=== PATIENT | female | born 1930 | race African-American/Black ===

== ENCOUNTER 2018-05-10 08:23 | Inpatient (IN) | payer MEDICARE, BC ==
[~2018-05-10] VITALS: Ht 152.4 cm; Wt 70.8 kg
[2018-05-10] VITALS (18 sets, daily range): BP systolic 140–195; BP diastolic 54–88
[~2018-05-10 08:23] MED LIST: ACET-3161 GT; ASPI-1159 PO; ATEN1TAB42 PO; CALC-775 PO; CLOP75TA16 PO; DIGO125T82 PO; DIPH25CA83 PO; DONE5TAB33 PO; FAMO20TA8 PO; FLUO15CR7 TP; HYDR-4134 PO; LIP40 PO; MELO-106 PO; POTA20TA12 PO; TRIA1CAP6 PO
[2018-05-10] MEDS ORDERED: IODIXANOL 320MG/ML 100 ML BOTTLE IV ONE (09:29)
[2018-05-10] MEDS ORDERED: LIDOCAINE HCL/PF 1% 10 MG/ML 5ML VIAL ONE (09:29)
[2018-05-10] MEDS ORDERED: MIDAZOLAM HCL 2 MG/2 ML VIAL ONE (10:24)
[2018-05-10] MEDS ORDERED: CLOP75TA16 PO (10:25)
[2018-05-10] MEDS ORDERED: HYDR100T26 PO (10:25)
[2018-05-10] MEDS ORDERED: FENTANYL CITRATE/PF 50MCG/ML 2ML VIAL ONE (10:25)
[2018-05-10] MEDS ORDERED: DONE10TA11 PO (10:25)
[2018-05-10] MEDS ORDERED: IOHEXOL-300 100 ML BOTTLE ONE (11:08)
[2018-05-10] MEDS ORDERED: CLOPIDOGREL 75MG TABLET ONE (12:03)
[2018-05-10] MEDS ORDERED: ATROPINE SULFATE 1MG/10ML SYR IV PRN (12:15)
[2018-05-10] MEDS ORDERED: ACETAMINOPHEN 325MG TABLET PO PRN (12:15)
[2018-05-10] MEDS ORDERED: ONDANSETRON HCL 4MG/2ML VIAL IV PRN (12:15)
[2018-05-10] MEDS ORDERED: ASPIRIN 325MG TABLET ONE (12:20)
[2018-05-10] MEDS ORDERED: HEPARIN SODIUM 1,000 UNIT/1ML VIAL IV ONE (13:47)
[2018-05-10] MEDS ORDERED: CLONIDINE 0.2MG TABLET PO PRN (21:00)
[2018-05-11] VITALS (9 sets, daily range): BP systolic 95–143; BP diastolic 57–98
[2018-05-11] MEDS ORDERED: CLOPIDOGREL 75MG TABLET PO SCH (09:00)
[2018-05-11] MEDS ORDERED: ASPIRIN 325MG TABLET PO SCH (09:00)
[2018-05-11 09:52] LABS: HEMATOCRIT. 40.5 % (36.0-48.0); HEMOGLOBIN. 13.6 g/dL (12.0-16.0); MEAN CORPUSCULAR HEMOGLOBIN 25.6 pg (28.0-32.0); MEAN CORPUSCULAR VOLUME 75.9 fL (81.0-99.0); MEAN PLATELET VOLUME 8.1 fl (7.4-10.4); PLATELET 256 x1000/uL (130-400); RED BLOOD CELL COUNT 5.33 mill/uL (4.2-5.4); RED CELL DISTRIBUTION WIDTH 14.5 % (11.6-14.6)
[2018-05-11 09:59] LABS: CHLORIDE 100 mEq/L (98-107)
[2018-05-11 12:11] LABS: PLATELET ESTIMATE NORMAL
== END 2018-05-11 15:04 | disposition home health service (06) | DRG 254 ==
LOC: CCL 08:23 → 3WST 08:24
PROVIDERS: ADMIT Specialist; ATTEND Specialist
PROC: 047K36Z Dilation of Right Femoral Artery with Three Drug-eluting Intraluminal Devices, Percutaneous Approach (ICD-10-PCS; principal; 2018-05-10)
PROC: B41F1ZZ Fluoroscopy of Right Lower Extremity Arteries using Low Osmolar Contrast (ICD-10-PCS; 2018-05-10)
DX: I73.9 Peripheral vascular disease, unspecified (principal); I25.10 Atherosclerotic heart disease of native coronary artery without angina pectoris; F03.90 Unspecified dementia, unspecified severity, without behavioral disturbance, psychotic disturbance, mood disturbance, and anxiety; E78.5 Hyperlipidemia, unspecified; I11.9 Hypertensive heart disease without heart failure; I08.1 Rheumatic disorders of both mitral and tricuspid valves; L97.519 Non-pressure chronic ulcer of other part of right foot with unspecified severity; I49.5 Sick sinus syndrome; Z88.0 Allergy status to penicillin; Z88.8 Allergy status to other drugs, medicaments and biological substances; Z79.899 Other long term (current) drug therapy; Z86.73 Personal history of transient ischemic attack (TIA), and cerebral infarction without residual deficits; Z95.0 Presence of cardiac pacemaker
CPT/HCPCS: 36415; 37226; 75710; 80048; 85025; 85347; C1725; C1769; C1876; C1887; C1893; C1894; J1644; J2250; J3010; J3490; Q9967

== ENCOUNTER 2018-11-18 11:02 | Inpatient (IN) | payer BC, MEDICARE ==
[~2018-11-18] VITALS: Ht 160 cm; Wt 56.0 kg
[~2018-11-18 11:02] MED LIST changes: -ACET-3161 GT; -ATEN1TAB42 PO; -CALC-775 PO; -DIPH25CA83 PO; +DONE10TA11 PO; -DONE5TAB33 PO; -FAMO20TA8 PO; -HYDR-4134 PO; +HYDR100T26 PO; -MELO-106 PO; -POTA20TA12 PO
[2018-11-18] MEDS ORDERED: HYDROCODONE/ACETAMINOPHEN 5/325MG TABLET PO STA (14:47)
[2018-11-18 16:17] LABS: HEMATOCRIT. 36.6 % (36.0-48.0); HEMOGLOBIN. 11.5 g/dL (12.0-16.0); MEAN CORPUSCULAR HEMOGLOBIN 20.6 pg (28.0-32.0); MEAN CORPUSCULAR VOLUME 65.4 fL (81.0-99.0); MEAN PLATELET VOLUME 8.8 fl (7.4-10.4); PLATELET 361 x1000/uL (130-400); RED BLOOD CELL COUNT 5.59 mill/uL (4.2-5.4); RED CELL DISTRIBUTION WIDTH 19.9 % (11.6-14.6)
[2018-11-18 16:22] LABS: CHLORIDE 103 mEq/L (98-107)
[2018-11-18 16:23] LABS: PROTHROMBIN TIME 9.7 sec (9.1-11.1)
[2018-11-18] MEDS ORDERED: HYDRALAZINE HCL 50MG TABLET PO ONE (17:00)
[2018-11-18] MEDS ORDERED: HYDRALAZINE HCL 25MG TABLET PO ONE (17:00)
[2018-11-18 17:14] LABS: ATYPICAL LYMPHOCYTES 1; PLATELET ESTIMATE NORMAL
[2018-11-18] MEDS ORDERED: HYDRALAZINE 20MG/ML VIAL IV ONE (18:15)
[2018-11-18] MEDS ORDERED: NITROGLYCERIN OINT 1GM/INCH UDPKT TD ONE (18:30)
[2018-11-18] MEDS ORDERED: ENOXAPARIN 60MG/0.6ML SYR SUBCUT ONE (18:30)
[2018-11-18] MEDS ORDERED: TRAMADOL 50MG TABLET PO PRN (23:15)
[2018-11-18] MEDS ORDERED: ACETAMINOPHEN 325MG TABLET PO PRN (23:15)
[2018-11-18] MEDS ORDERED: NITROGLYCERIN 0.1MG/HR PATCH TOP PRN (23:30)
[2018-11-18] MEDS ORDERED: AMLODIPINE 5MG TABLET PO SCH (23:30)
[2018-11-19] MEDS ORDERED: HYDRALAZINE HCL 100MG TABLET PO SCH (06:00)
[2018-11-19] MEDS ORDERED: AMLODIPINE 5MG TABLET PO SCH (09:00)
[2018-11-19] MEDS: CLOPIDOGREL 75MG TABLET PO SCH (09:16)
[2018-11-19] MEDS: HYDRALAZINE HCL 100MG TABLET PO SCH ×4 (09:17→21:08)
[2018-11-19] MEDS: DONEPEZIL HCL 10MG TABLET PO SCH (09:17)
[2018-11-19] MEDS: ASPIRIN 81MG EC TABLET PO SCH (09:17)
[2018-11-19 10:19] VITALS: BP 199/59
[2018-11-19 11:51] VITALS: BP 145/82
[2018-11-19] MEDS: ENOXAPARIN 40MG/0.4ML SYR SUBCUT SCH (12:49)
[2018-11-19] MEDS: NIFEDIPINE XL 60MG TAB PO SCH (12:49)
[2018-11-19] MEDS: LOSARTAN POTASSIUM 25 MG TABLET PO SCH (12:49)
[2018-11-19 15:27] VITALS: BP 166/54
[2018-11-19 15:49] LABS: HEMOGLOBIN. 11.4 g/dL (12.0-16.0); MEAN CORPUSCULAR HEMOGLOBIN 20.5 pg (28.0-32.0); MEAN CORPUSCULAR VOLUME 64.4 fL (81.0-99.0); MEAN PLATELET VOLUME 8.8 fl (7.4-10.4); PLATELET 340 x1000/uL (130-400); RED BLOOD CELL COUNT 5.58 mill/uL (4.2-5.4); RED CELL DISTRIBUTION WIDTH 20.3 % (11.6-14.6)
[2018-11-19 16:00] LABS: CHLORIDE 106 mEq/L (98-107)
[2018-11-19] MEDS ORDERED: POTASSIUM CHLORIDE 20MEQ TABLET SR PO NR (16:30)
[2018-11-19 16:59] LABS: PLATELET ESTIMATE NORMAL
[2018-11-19 20:00] VITALS: BP 145/59
[2018-11-19] MEDS: ATORVASTATIN CALCIUM 40MG TABLET PO SCH (21:08)
[2018-11-20] VITALS: BP 129/48
[2018-11-20 04:00] VITALS: BP 137/59
[2018-11-20] MEDS: HYDRALAZINE HCL 100MG TABLET PO SCH ×3 (05:35→21:31)
[2018-11-20 07:35] LABS: HEMATOCRIT. 30.6 % (36.0-48.0); HEMOGLOBIN. 9.8 g/dL (12.0-16.0); MEAN CORPUSCULAR HEMOGLOBIN 20.5 pg (28.0-32.0); MEAN CORPUSCULAR VOLUME 63.5 fL (81.0-99.0); MEAN PLATELET VOLUME 8.8 fl (7.4-10.4); PLATELET 300 x1000/uL (130-400); RED BLOOD CELL COUNT 4.81 mill/uL (4.2-5.4); RED CELL DISTRIBUTION WIDTH 19.8 % (11.6-14.6)
[2018-11-20 08:00] VITALS: BP 122/68
[2018-11-20] MEDS: CLOPIDOGREL 75MG TABLET PO SCH (09:11)
[2018-11-20] MEDS: LOSARTAN POTASSIUM 25 MG TABLET PO SCH (09:11)
[2018-11-20] MEDS: NIFEDIPINE XL 60MG TAB PO SCH (09:11)
[2018-11-20] MEDS: ENOXAPARIN 40MG/0.4ML SYR SUBCUT SCH ×2 (09:11→20:09)
[2018-11-20] MEDS: DONEPEZIL HCL 10MG TABLET PO SCH (09:11)
[2018-11-20] MEDS: ASPIRIN 81MG EC TABLET PO SCH (09:11)
[2018-11-20 09:15] LABS: CHLORIDE 106 mEq/L (98-107)
[2018-11-20 12:00] VITALS: BP 119/72
[2018-11-20] MEDS: NITROGLYCERIN OINT 1GM/INCH UDPKT TD SCH ×4 (12:00→23:12)
[2018-11-20] MEDS ORDERED: NITROGLYCERIN 0.1MG/HR PATCH TOP SCH (12:30)
[2018-11-20 13:16] LABS: PLATELET ESTIMATE NORMAL
[2018-11-20 16:00] VITALS: BP 118/61
[2018-11-20 20:00] VITALS: BP 142/53
[2018-11-20] MEDS: ATORVASTATIN CALCIUM 40MG TABLET PO SCH (20:09)
[2018-11-21] VITALS (10 sets, daily range): BP systolic 105–138; BP diastolic 43–69
[2018-11-21] MEDS: HYDRALAZINE HCL 100MG TABLET PO SCH ×4 (05:24→21:00)
[2018-11-21] MEDS: NITROGLYCERIN OINT 1GM/INCH UDPKT TD SCH ×4 (05:24→23:31)
[2018-11-21 08:09] LABS: HEMATOCRIT. 29.1 % (36.0-48.0); HEMOGLOBIN. 9.4 g/dL (12.0-16.0); MEAN CORPUSCULAR HEMOGLOBIN 20.8 pg (28.0-32.0); MEAN CORPUSCULAR VOLUME 64.3 fL (81.0-99.0); MEAN PLATELET VOLUME 8.8 fl (7.4-10.4); PLATELET 294 x1000/uL (130-400); RED BLOOD CELL COUNT 4.53 mill/uL (4.2-5.4); RED CELL DISTRIBUTION WIDTH 20.1 % (11.6-14.6)
[2018-11-21 08:29] LABS: CHLORIDE 107 mEq/L (98-107)
[2018-11-21] MEDS: NIFEDIPINE XL 60MG TAB PO SCH (09:00)
[2018-11-21] MEDS: LOSARTAN POTASSIUM 25 MG TABLET PO SCH (09:00)
[2018-11-21] MEDS: ENOXAPARIN 40MG/0.4ML SYR SUBCUT SCH ×2 (10:03→20:16)
[2018-11-21] MEDS: ASPIRIN 81MG EC TABLET PO SCH (10:03)
[2018-11-21] MEDS: CLOPIDOGREL 75MG TABLET PO SCH (10:03)
[2018-11-21] MEDS: DONEPEZIL HCL 10MG TABLET PO SCH (10:10)
[2018-11-21 13:58] LABS: PLATELET ESTIMATE NORMAL
[2018-11-21] MEDS ORDERED: IOHEXOL-350 100 ML BOTTLE ONE (14:58)
[2018-11-21] MEDS: ATORVASTATIN CALCIUM 40MG TABLET PO SCH (20:16)
[2018-11-22] VITALS (8 sets, daily range): BP systolic 130–184; BP diastolic 44–112
[2018-11-22] MEDS: NITROGLYCERIN OINT 1GM/INCH UDPKT TD SCH ×4 (05:01→23:08)
[2018-11-22] MEDS: HYDRALAZINE HCL 100MG TABLET PO SCH ×3 (05:01→21:50)
[2018-11-22 06:13] LABS: HEMATOCRIT. 31.6 % (36.0-48.0); HEMOGLOBIN. 9.9 g/dL (12.0-16.0); MEAN CORPUSCULAR HEMOGLOBIN 20.2 pg (28.0-32.0); MEAN CORPUSCULAR VOLUME 64.5 fL (81.0-99.0); MEAN PLATELET VOLUME 8.8 fl (7.4-10.4); PLATELET 309 x1000/uL (130-400); RED CELL DISTRIBUTION WIDTH 20.1 % (11.6-14.6)
[2018-11-22 06:23] LABS: CHLORIDE 108 mEq/L (98-107)
[2018-11-22] MEDS: LOSARTAN POTASSIUM 25 MG TABLET PO SCH (09:00)
[2018-11-22] MEDS: CLOPIDOGREL 75MG TABLET PO SCH (09:00)
[2018-11-22] MEDS: DONEPEZIL HCL 10MG TABLET PO SCH (09:00)
[2018-11-22] MEDS: NIFEDIPINE XL 60MG TAB PO SCH (09:00)
[2018-11-22] MEDS: ASPIRIN 81MG EC TABLET PO SCH (09:00)
[2018-11-22] MEDS: SODIUM CHLORIDE 0.45% 1,000 ML IV SCH ×2 (09:33→22:57)
[2018-11-22 14:05] LABS: PLATELET ESTIMATE NORMAL
[2018-11-22] MEDS ORDERED: IOHEXOL-300 100 ML BOTTLE ONE (14:44)
[2018-11-22] MEDS ORDERED: LIDOCAINE HCL 1% 20ML VIAL (Pyxis) INJ ONE (14:44)
[2018-11-22] MEDS ORDERED: IODIXANOL 320MG/ML 100 ML BOTTLE IV ONE (14:44)
[2018-11-22] MEDS ORDERED: MIDAZOLAM HCL 2 MG/2 ML VIAL ONE (14:47)
[2018-11-22] MEDS ORDERED: FENTANYL CITRATE/PF 50MCG/ML 2ML VIAL ONE (14:47)
[2018-11-22] MEDS ORDERED: HEPARIN SODIUM 1,000 UNIT/1ML VIAL IV ONE ×2 (14:54→15:05)
[2018-11-22] MEDS ORDERED: ACETAMINOPHEN 325MG TABLET PO PRN (16:15)
[2018-11-22] MEDS ORDERED: ATROPINE SULFATE 1MG/10ML SYR IV PRN (16:15)
[2018-11-22] MEDS ORDERED: ONDANSETRON HCL 4MG/2ML INJ IV PRN (16:15)
[2018-11-22] MEDS ORDERED: ASPIRIN 325MG TABLET ONE (16:43)
[2018-11-22] MEDS ORDERED: CLOPIDOGREL 75MG TABLET ONE (16:43)
[2018-11-22] MEDS: ATORVASTATIN CALCIUM 40MG TABLET PO SCH (21:50)
[2018-11-23] VITALS (17 sets, daily range): BP systolic 99–199; BP diastolic 43–97
[2018-11-23] MEDS: CLONIDINE 0.1MG TABLET PO PRN (01:50)
[2018-11-23] MEDS ORDERED: CLONIDINE 0.2MG TABLET PO SCH (04:30)
[2018-11-23] MEDS: HYDRALAZINE HCL 100MG TABLET PO SCH ×3 (06:22→21:33)
[2018-11-23] MEDS: NITROGLYCERIN OINT 1GM/INCH UDPKT TD SCH ×4 (06:23→23:34)
[2018-11-23] MEDS: DONEPEZIL HCL 10MG TABLET PO SCH (08:32)
[2018-11-23] MEDS: CLOPIDOGREL 75MG TABLET PO SCH (08:32)
[2018-11-23] MEDS: LOSARTAN POTASSIUM 25 MG TABLET PO SCH (08:36)
[2018-11-23] MEDS: NIFEDIPINE XL 60MG TAB PO SCH (08:36)
[2018-11-23] MEDS: ASPIRIN 81MG EC TABLET PO SCH (08:36)
[2018-11-23 09:51] LABS: HEMATOCRIT. 29.4 % (36.0-48.0); HEMOGLOBIN. 9.4 g/dL (12.0-16.0); MEAN CORPUSCULAR HEMOGLOBIN 20.6 pg (28.0-32.0); MEAN CORPUSCULAR VOLUME 64.7 fL (81.0-99.0); MEAN PLATELET VOLUME 8.6 fl (7.4-10.4); PLATELET 272 x1000/uL (130-400); RED BLOOD CELL COUNT 4.55 mill/uL (4.2-5.4); RED CELL DISTRIBUTION WIDTH 20.1 % (11.6-14.6)
[2018-11-23 10:11] LABS: CHLORIDE 108 mEq/L (98-107)
[2018-11-23] MEDS: SODIUM CHLORIDE 0.45% 1,000 ML IV SCH ×2 (10:30→23:30)
[2018-11-23 10:53] LABS: PLATELET ESTIMATE NORMAL
[2018-11-23] MEDS: ATORVASTATIN CALCIUM 40MG TABLET PO SCH (21:32)
[2018-11-24] VITALS (10 sets, daily range): BP systolic 124–171; BP diastolic 51–69
[2018-11-24] MEDS: CLONIDINE 0.1MG TABLET PO PRN (02:22)
[2018-11-24] MEDS: HYDRALAZINE HCL 100MG TABLET PO SCH ×3 (05:57→21:28)
[2018-11-24] MEDS: NITROGLYCERIN OINT 1GM/INCH UDPKT TD SCH ×3 (05:57→18:04)
[2018-11-24 08:23] LABS: HEMATOCRIT. 28.9 % (36.0-48.0); HEMOGLOBIN. 9.3 g/dL (12.0-16.0); MEAN CORPUSCULAR HEMOGLOBIN 20.8 pg (28.0-32.0); MEAN CORPUSCULAR VOLUME 64.2 fL (81.0-99.0); MEAN PLATELET VOLUME 8.6 fl (7.4-10.4); PLATELET 265 x1000/uL (130-400); RED CELL DISTRIBUTION WIDTH 20.6 % (11.6-14.6)
[2018-11-24 08:31] LABS: CHLORIDE 107 mEq/L (98-107)
[2018-11-24] MEDS: ASPIRIN 81MG EC TABLET PO SCH (08:38)
[2018-11-24] MEDS: CLOPIDOGREL 75MG TABLET PO SCH (08:38)
[2018-11-24] MEDS: DONEPEZIL HCL 10MG TABLET PO SCH (08:39)
[2018-11-24] MEDS: NIFEDIPINE XL 60MG TAB PO SCH (08:40)
[2018-11-24] MEDS: LOSARTAN POTASSIUM 25 MG TABLET PO SCH (08:40)
[2018-11-24 12:27] LABS: PLATELET ESTIMATE NORMAL
[2018-11-24] MEDS: SODIUM CHLORIDE 0.45% 1,000 ML IV SCH (12:53)
[2018-11-24] MEDS: ATORVASTATIN CALCIUM 40MG TABLET PO SCH (21:28)
[2018-11-25] VITALS (12 sets, daily range): BP systolic 102–171; BP diastolic 29–72
[2018-11-25] MEDS: NITROGLYCERIN OINT 1GM/INCH UDPKT TD SCH ×4 (00:11→17:18)
[2018-11-25] MEDS: SODIUM CHLORIDE 0.45% 1,000 ML IV SCH ×2 (00:35→13:05)
[2018-11-25] MEDS: HYDRALAZINE HCL 100MG TABLET PO SCH ×3 (05:21→21:24)
[2018-11-25] MEDS: DONEPEZIL HCL 10MG TABLET PO SCH (09:41)
[2018-11-25] MEDS: ASPIRIN 81MG EC TABLET PO SCH (09:41)
[2018-11-25] MEDS: CLOPIDOGREL 75MG TABLET PO SCH (09:41)
[2018-11-25] MEDS: LOSARTAN POTASSIUM 25 MG TABLET PO SCH (09:41)
[2018-11-25] MEDS: NIFEDIPINE XL 60MG TAB PO SCH (09:41)
[2018-11-25] MEDS: ATORVASTATIN CALCIUM 40MG TABLET PO SCH (21:23)
[2018-11-26] VITALS (12 sets, daily range): BP systolic 133–164; BP diastolic 49–67
[2018-11-26] MEDS: NITROGLYCERIN OINT 1GM/INCH UDPKT TD SCH ×4 (00:59→18:18)
[2018-11-26] MEDS: SODIUM CHLORIDE 0.45% 1,000 ML IV SCH ×2 (01:27→14:34)
[2018-11-26] MEDS: HYDRALAZINE HCL 100MG TABLET PO SCH ×3 (05:26→20:56)
[2018-11-26 06:25] LABS: HEMATOCRIT. 29.9 % (36.0-48.0); HEMOGLOBIN. 9.7 g/dL (12.0-16.0); MEAN CORPUSCULAR HEMOGLOBIN 20.9 pg (28.0-32.0); MEAN CORPUSCULAR VOLUME 64.7 fL (81.0-99.0); MEAN PLATELET VOLUME 8.7 fl (7.4-10.4); PLATELET 280 x1000/uL (130-400); RED BLOOD CELL COUNT 4.62 mill/uL (4.2-5.4); RED CELL DISTRIBUTION WIDTH 20.5 % (11.6-14.6)
[2018-11-26 07:01] LABS: CHLORIDE 108 mEq/L (98-107)
[2018-11-26] MEDS: ASPIRIN 81MG EC TABLET PO SCH (09:30)
[2018-11-26] MEDS: DONEPEZIL HCL 10MG TABLET PO SCH (09:30)
[2018-11-26] MEDS: NIFEDIPINE XL 60MG TAB PO SCH (09:30)
[2018-11-26] MEDS: LOSARTAN POTASSIUM 25 MG TABLET PO SCH (09:30)
[2018-11-26] MEDS: CLOPIDOGREL 75MG TABLET PO SCH (09:30)
[2018-11-26] MEDS: CLONIDINE 0.1MG TABLET PO PRN (16:53)
[2018-11-26 17:52] LABS: PLATELET ESTIMATE NORMAL
[2018-11-26] MEDS: ATORVASTATIN CALCIUM 40MG TABLET PO SCH (20:56)
[2018-11-27] VITALS (12 sets, daily range): BP systolic 102–168; BP diastolic 44–67
[2018-11-27] MEDS: NITROGLYCERIN OINT 1GM/INCH UDPKT TD SCH ×4 (00:19→17:17)
[2018-11-27] MEDS: SODIUM CHLORIDE 0.45% 1,000 ML IV SCH ×2 (02:15→15:29)
[2018-11-27] MEDS: HYDRALAZINE HCL 100MG TABLET PO SCH ×3 (06:32→21:28)
[2018-11-27] MEDS: CLOPIDOGREL 75MG TABLET PO SCH (08:15)
[2018-11-27] MEDS: DONEPEZIL HCL 10MG TABLET PO SCH (08:15)
[2018-11-27] MEDS: NIFEDIPINE XL 60MG TAB PO SCH (08:15)
[2018-11-27] MEDS: LOSARTAN POTASSIUM 25 MG TABLET PO SCH (08:15)
[2018-11-27] MEDS: ASPIRIN 81MG EC TABLET PO SCH (08:15)
[2018-11-27] MEDS: ATORVASTATIN CALCIUM 40MG TABLET PO SCH (21:28)
[2018-11-28] VITALS (9 sets, daily range): BP systolic 120–159; BP diastolic 53–66
[2018-11-28] MEDS: NITROGLYCERIN OINT 1GM/INCH UDPKT TD SCH ×3 (00:36→12:28)
[2018-11-28] MEDS: SODIUM CHLORIDE 0.45% 1,000 ML IV SCH (03:50)
[2018-11-28] MEDS: HYDRALAZINE HCL 100MG TABLET PO SCH ×2 (05:49→14:11)
[2018-11-28 06:44] LABS: HEMATOCRIT. 28.4 % (36.0-48.0); HEMOGLOBIN. 9.2 g/dL (12.0-16.0); MEAN CORPUSCULAR HEMOGLOBIN 20.8 pg (28.0-32.0); MEAN CORPUSCULAR VOLUME 63.9 fL (81.0-99.0); MEAN PLATELET VOLUME 8.8 fl (7.4-10.4); PLATELET 299 x1000/uL (130-400); RED BLOOD CELL COUNT 4.44 mill/uL (4.2-5.4); RED CELL DISTRIBUTION WIDTH 20.4 % (11.6-14.6)
[2018-11-28 06:54] LABS: CHLORIDE 107 mEq/L (98-107)
[2018-11-28] MEDS: CLOPIDOGREL 75MG TABLET PO SCH (08:16)
[2018-11-28] MEDS: DONEPEZIL HCL 10MG TABLET PO SCH (08:16)
[2018-11-28] MEDS: NIFEDIPINE XL 60MG TAB PO SCH (08:16)
[2018-11-28] MEDS: ASPIRIN 81MG EC TABLET PO SCH (08:17)
[2018-11-28] MEDS: LOSARTAN POTASSIUM 25 MG TABLET PO SCH (08:17)
[2018-11-28 14:37] LABS: NUCLEATED RED BLOOD CELLS 1 /100 WBC
[2018-11-28 14:38] LABS: PLATELET ESTIMATE NORMAL
== END 2018-11-28 15:57 | DRG 271 ==
LOC: ER 11:02 → 8WST 18:17 → EDBEDREQ 18:26 → EDBEDREQTM 18:26 → ENRESERV 11-19 07:47 → CVICU 11-22 16:44 → 3WST 11-22 17:58
PROVIDERS: ADMIT Specialist; ATTEND Specialist
PROC: 04CK3ZZ Extirpation of Matter from Right Femoral Artery, Percutaneous Approach (ICD-10-PCS; principal; 2018-11-22)
PROC: 047K3Z1 Dilation of Right Femoral Artery using Drug-Coated Balloon, Percutaneous Approach (ICD-10-PCS; 2018-11-22)
DX: T82.856A Stenosis of peripheral vascular stent, initial encounter (principal); L97.319 Non-pressure chronic ulcer of right ankle with unspecified severity; E83.52 Hypercalcemia; D50.9 Iron deficiency anemia, unspecified; E78.5 Hyperlipidemia, unspecified; I70.211 Atherosclerosis of native arteries of extremities with intermittent claudication, right leg; Z91.14 Patient's other noncompliance with medication regimen; L80 Vitiligo; E87.6 Hypokalemia; F03.90 Unspecified dementia, unspecified severity, without behavioral disturbance, psychotic disturbance, mood disturbance, and anxiety; I49.5 Sick sinus syndrome; R73.9 Hyperglycemia, unspecified; Y83.8 Other surgical procedures as the cause of abnormal reaction of the patient, or of later complication, without mention of misadventure at the time of the procedure; R74.0 Nonspecific elevation of levels of transaminase and lactic acid dehydrogenase [LDH]; I11.9 Hypertensive heart disease without heart failure; I77.1 Stricture of artery; I25.10 Atherosclerotic heart disease of native coronary artery without angina pectoris; I25.2 Old myocardial infarction; Z95.0 Presence of cardiac pacemaker; Z88.0 Allergy status to penicillin; Z88.1 Allergy status to other antibiotic agents; Z79.82 Long term (current) use of aspirin; Z79.899 Other long term (current) drug therapy; Z93.3 Colostomy status; Y92.89 Other specified places as the place of occurrence of the external cause
CPT/HCPCS: 36415; 37225; 71045; 72191; 73706; 75710; 80048; 83735; 85347; 93005; 93922; 93971; 96372; 96374; 97116; 97162; 97166; 97530; 97535; 99291; C1726; C1769; C1885; C1887; C1893; C1894; J0360; J0461; J1644; J1650; J2250; J3010; J3490; Q9967

== ENCOUNTER 2019-10-25 12:54 | Inpatient (IN) | payer BC ==
[~2019-10-25] VITALS: Ht 157.5 cm; Wt 44.5 kg
[~2019-10-25 12:54] MED LIST changes: -ASPI-1159 PO; +ASPI-1393 PO; -CLOP75TA16 PO; +CLOP75TA4 PO
[2019-10-25 15:04] LABS: HEMATOCRIT. 26.6 % (36.0-48.0); MEAN CORPUSCULAR HEMOGLOBIN 17.1 pg (28.0-32.0); MEAN CORPUSCULAR VOLUME 56.6 fL (81.0-99.0); MEAN PLATELET VOLUME 8.6 fl (7.4-10.4); PLATELET 453 x1000/uL (130-400)
[2019-10-25 15:10] LABS: CHLORIDE 104 mEq/L (98-107)
[2019-10-25 15:18] LABS: CREATINE KINASE MB FRACTION 1.2 ng/mL (0.5-3.6)
[2019-10-25 15:20] LABS: CREATINE KINASE 27 IU/L (26-192)
[2019-10-25 15:36] LABS: DIGOXIN 0.6 ng/mL (0.9-2.0)
[2019-10-25 15:37] LABS: CLARITY URINE CLOUDY (CLEAR); COLOR URINE YELLOW (YELLOW); KETONES URINE NEGATIVE (NEGATIVE); LEUKOCYTE ESTERASE URINE TRACE (NEGATIVE); NITRITE URINE NEGATIVE (NEGATIVE); OCCULT BLOOD URINE NEGATIVE (NEGATIVE); PROTEIN URINE NEGATIVE (NEGATIVE); SPECIFIC GRAVITY URINE 1.014 (1.005-1.030); UROBILINOGEN URINE 0.2 E.U./dL (0.2-1.0)
[2019-10-25 16:22] LABS: NUCLEATED RED BLOOD CELLS 2 /100 WBC; PLATELET ESTIMATE NORMAL
[2019-10-25 21:31] VITALS: BP 127/65
[2019-10-25 22:00] VITALS: BP 127/65
[2019-10-25] MEDS ORDERED: NIFE60TA64 MT (23:57)
[2019-10-25] MEDS ORDERED: NITR0.4T49 SL (23:57)
[2019-10-25] MEDS ORDERED: MEGE40TA27 GT (23:57)
[2019-10-25] MEDS ORDERED: MEGE40TA27 PO (23:57)
[2019-10-26] VITALS: BP 121/49
[2019-10-26] MEDS ORDERED: MAGNESIUM/ALUMINUM HYDROXIDE/SIMETHICONE 30ML UDC PO PRN (01:15)
[2019-10-26] MEDS ORDERED: DIPHENHYDRAMINE 50MG/ML VIAL IV PRN (01:15)
[2019-10-26] MEDS ORDERED: ONDANSETRON HCL 4MG/2ML INJ IV PRN (01:15)
[2019-10-26] MEDS ORDERED: IPRATROPIUM/ALBUTEROL 0.5-3(2.5)MG/3ML NEB NEB PRN (01:15)
[2019-10-26] MEDS ORDERED: ACETAMINOPHEN 325MG TABLET PO PRN (01:15)
[2019-10-26] MEDS: DEXT 5%/0.45% NACL 1000ML 1,000 ML IV SCH ×2 (01:33→16:01)
[2019-10-26 04:00] VITALS: BP 134/55
[2019-10-26 08:35] VITALS: BP 130/50
[2019-10-26] MEDS: DONEPEZIL HCL 10MG TABLET PO SCH (10:05)
[2019-10-26] MEDS: CLOPIDOGREL 75MG TABLET PO SCH (10:05)
[2019-10-26] MEDS: ASPIRIN 81MG EC TABLET PO SCH (10:05)
[2019-10-26 11:40] VITALS: BP 140/53
[2019-10-26 16:00] VITALS: BP 137/44
[2019-10-26 21:00] VITALS: BP 147/45
[2019-10-27] MEDS: DEXT 5%/0.45% NACL 1000ML 1,000 ML IV SCH ×2 (04:40→18:00)
[2019-10-27 08:42] VITALS: BP 160/58
[2019-10-27] MEDS: ASPIRIN 81MG EC TABLET PO SCH (09:05)
[2019-10-27] MEDS: CLOPIDOGREL 75MG TABLET PO SCH (09:05)
[2019-10-27] MEDS: DONEPEZIL HCL 10MG TABLET PO SCH (09:05)
[2019-10-27 09:52] LABS: CHLORIDE 109 mEq/L (98-107); HEMATOCRIT. 24.1 % (36.0-48.0); HEMOGLOBIN. 7.6 g/dL (12.0-16.0); MEAN CORPUSCULAR VOLUME 57.3 fL (81.0-99.0); MEAN PLATELET VOLUME 8.5 fl (7.4-10.4); PLATELET 439 x1000/uL (130-400); RED CELL DISTRIBUTION WIDTH 22.5 % (11.6-14.6)
[2019-10-27 10:31] LABS: PLATELET ESTIMATE INCREASED
[2019-10-27 12:46] VITALS: BP 171/57
[2019-10-27 16:20] VITALS: BP 143/48
[2019-10-27 20:00] VITALS: BP 161/57
[2019-10-28] MEDS: DEXT 5%/0.45% NACL 1000ML 1,000 ML IV SCH ×2 (07:20→20:56)
[2019-10-28 08:48] VITALS: BP 177/60
[2019-10-28] MEDS: DONEPEZIL HCL 10MG TABLET PO SCH (09:14)
[2019-10-28] MEDS: ASPIRIN 81MG EC TABLET PO SCH (09:14)
[2019-10-28] MEDS: CLOPIDOGREL 75MG TABLET PO SCH (09:14)
[2019-10-28 12:30] VITALS: BP 148/49
[2019-10-28 16:41] VITALS: BP 136/47
[2019-10-28 20:00] VITALS: BP 160/59
[2019-10-28 22:00] VITALS: BP 142/50
[2019-10-29] VITALS: BP 155/47
[2019-10-29 04:06] VITALS: BP 153/48
[2019-10-29 08:00] VITALS: BP 172/57
[2019-10-29] MEDS: DONEPEZIL HCL 10MG TABLET PO SCH (09:30)
[2019-10-29] MEDS: ASPIRIN 81MG EC TABLET PO SCH (09:30)
[2019-10-29] MEDS: CLOPIDOGREL 75MG TABLET PO SCH (09:30)
[2019-10-29] MEDS: CLONIDINE 0.1MG TABLET PO PRN (09:30)
[2019-10-29 12:00] VITALS: BP 157/50
[2019-10-29] MEDS: AMLODIPINE 5MG TABLET PO SCH ×2 (15:05→23:17)
[2019-10-29 16:00] VITALS: BP 134/50
[2019-10-29 20:00] VITALS: BP 133/46
[2019-10-29] MEDS: ATORVASTATIN CALCIUM 40MG TABLET PO SCH (20:38)
[2019-10-29] MEDS: DEXT 5%/0.45% NACL 1000ML 1,000 ML IV SCH (23:21)
[2019-10-30] VITALS: BP 127/48
[2019-10-30 08:12] VITALS: BP 133/45
[2019-10-30] MEDS: DONEPEZIL HCL 10MG TABLET PO SCH (08:43)
[2019-10-30] MEDS: ASPIRIN 81MG EC TABLET PO SCH (08:43)
[2019-10-30] MEDS: CLOPIDOGREL 75MG TABLET PO SCH (08:43)
[2019-10-30] MEDS: AMLODIPINE 5MG TABLET PO SCH ×2 (08:44→20:57)
[2019-10-30 09:37] LABS: CHLORIDE 109 mEq/L (98-107)
[2019-10-30 10:10] LABS: HEMATOCRIT. 21.1 % (36.0-48.0); MEAN CORPUSCULAR HEMOGLOBIN 17.5 pg (28.0-32.0); MEAN CORPUSCULAR VOLUME 56.7 fL (81.0-99.0); MEAN PLATELET VOLUME 8.5 fl (7.4-10.4); PLATELET 393 x1000/uL (130-400); RED BLOOD CELL COUNT 3.72 mill/uL (4.2-5.4)
[2019-10-30] MEDS: DEXT 5%/0.45% NACL 1000ML 1,000 ML IV SCH (11:57)
[2019-10-30 12:21] VITALS: BP 139/45
[2019-10-30 12:27] LABS: HEMOGLOBIN. 6.5 g/dL (12.0-16.0)
[2019-10-30 15:02] LABS: HEMATOCRIT. 22.6 % (36.0-48.0); MEAN CORPUSCULAR HEMOGLOBIN 17.2 pg (28.0-32.0); MEAN CORPUSCULAR VOLUME 56.5 fL (81.0-99.0); MEAN PLATELET VOLUME 8.5 fl (7.4-10.4); PLATELET 420 x1000/uL (130-400); RED BLOOD CELL COUNT 3.99 mill/uL (4.2-5.4); RED CELL DISTRIBUTION WIDTH 22.3 % (11.6-14.6)
[2019-10-30 15:23] LABS: HEMOGLOBIN. 6.9 g/dL (12.0-16.0)
[2019-10-30 16:03] LABS: NUCLEATED RED BLOOD CELLS 1 /100 WBC; PLATELET ESTIMATE INCREASED
[2019-10-30 16:08] VITALS: BP 129/57
[2019-10-30 18:22] LABS: PLATELET ESTIMATE NORMAL
[2019-10-30 20:00] VITALS: BP_SYST 128; BP_SYST 134; BP_DIAS 45; BP_DIAS 53
[2019-10-30] MEDS: ATORVASTATIN CALCIUM 40MG TABLET PO SCH (20:57)
[2019-10-30 22:35] LABS: TOTAL IRON BINDING CAPACITY 304 ug/dL (250-450)
[2019-10-31] VITALS (9 sets, daily range): BP systolic 123–153; BP diastolic 41–57
[2019-10-31] MEDS: DEXT 5%/0.45% NACL 1000ML 1,000 ML IV SCH ×2 (04:17→15:07)
[2019-10-31 06:08] LABS: HEMATOCRIT 26.1 % (36.0-48.0); HEMOGLOBIN 8.5 g/dL (12.0-16.0); MEAN CORPUSCULAR HEMOGLOBIN 20.1 pg (28.0-32.0); MEAN CORPUSCULAR VOLUME 62.1 fL (81.0-99.0); PLATELET 376 x1000/uL (130-400); RED BLOOD CELL COUNT 4.21 mill/uL (4.2-5.4); RED CELL DISTRIBUTION WIDTH 31.7 % (11.6-14.6)
[2019-10-31] MEDS: AMLODIPINE 5MG TABLET PO SCH ×2 (09:19→20:48)
[2019-10-31] MEDS: DONEPEZIL HCL 10MG TABLET PO SCH (09:19)
[2019-10-31] MEDS: CLOPIDOGREL 75MG TABLET PO SCH (09:19)
[2019-10-31] MEDS: ASPIRIN 81MG EC TABLET PO SCH (09:19)
[2019-10-31 10:35] LABS: HEMATOCRIT 30.9 % (36.0-48.0); HEMOGLOBIN 9.8 g/dL (12.0-16.0)
[2019-10-31 13:45] LABS: INR 0.9; PROTHROMBIN TIME 9.8 sec (9.6-11.0)
[2019-10-31] MEDS: ATORVASTATIN CALCIUM 40MG TABLET PO SCH (20:48)
[2019-11-01] VITALS (7 sets, daily range): BP systolic 120–170; BP diastolic 48–80
[2019-11-01] MEDS: DEXT 5%/0.45% NACL 1000ML 1,000 ML IV SCH ×2 (04:17→17:53)
[2019-11-01] MEDS: CLOPIDOGREL 75MG TABLET PO SCH (09:00)
[2019-11-01] MEDS: ASPIRIN 81MG EC TABLET PO SCH (09:00)
[2019-11-01] MEDS: AMLODIPINE 5MG TABLET PO SCH ×2 (09:00→21:39)
[2019-11-01] MEDS: DONEPEZIL HCL 10MG TABLET PO SCH (09:00)
[2019-11-01] MEDS: CLONIDINE 0.1MG TABLET PO PRN (10:08)
[2019-11-01] MEDS: IRON SUCROSE COMPLEX 100 MG/5 ML ML IV SCH (20:27)
[2019-11-01] MEDS: ATORVASTATIN CALCIUM 40MG TABLET PO SCH (21:39)
[2019-11-02] VITALS: BP 138/77
[2019-11-02 04:00] VITALS: BP 130/80
[2019-11-02 08:00] VITALS: BP 153/51
[2019-11-02] MEDS: DEXT 5%/0.45% NACL 1000ML 1,000 ML IV SCH (08:59)
[2019-11-02] MEDS: CLOPIDOGREL 75MG TABLET PO SCH (09:33)
[2019-11-02] MEDS: DONEPEZIL HCL 10MG TABLET PO SCH (09:38)
[2019-11-02] MEDS: AMLODIPINE 5MG TABLET PO SCH ×2 (09:39→21:42)
[2019-11-02 12:00] VITALS: BP 155/59
[2019-11-02] MEDS: ASPIRIN 81MG EC TABLET PO SCH (14:01)
[2019-11-02 16:00] VITALS: BP 142/58
[2019-11-02 20:00] VITALS: BP 163/49
[2019-11-02] MEDS: IRON SUCROSE COMPLEX 100 MG/5 ML ML IV SCH (20:41)
[2019-11-02] MEDS: ATORVASTATIN CALCIUM 40MG TABLET PO SCH (21:42)
[2019-11-03] VITALS (7 sets, daily range): BP systolic 130–168; BP diastolic 34–58
[2019-11-03] MEDS: DEXT 5%/0.45% NACL 1000ML 1,000 ML IV SCH ×4 (06:40→23:20)
[2019-11-03] MEDS: DONEPEZIL HCL 10MG TABLET PO SCH (09:00)
[2019-11-03] MEDS: CLOPIDOGREL 75MG TABLET PO SCH (09:00)
[2019-11-03] MEDS: AMLODIPINE 5MG TABLET PO SCH ×2 (09:00→21:30)
[2019-11-03] MEDS: ASPIRIN 81MG EC TABLET PO SCH (09:00)
[2019-11-03] MEDS: IRON SUCROSE COMPLEX 100 MG/5 ML ML IV SCH (20:25)
[2019-11-03] MEDS: ATORVASTATIN CALCIUM 40MG TABLET PO SCH (21:29)
[2019-11-04 00:32] VITALS: BP 151/52
[2019-11-04 04:00] VITALS: BP 145/47
[2019-11-04 08:03] VITALS: BP 142/37
[2019-11-04] MEDS: CLOPIDOGREL 75MG TABLET PO SCH (08:21)
[2019-11-04] MEDS: DONEPEZIL HCL 10MG TABLET PO SCH (08:21)
[2019-11-04] MEDS: AMLODIPINE 5MG TABLET PO SCH ×2 (08:21→22:06)
[2019-11-04] MEDS: ASPIRIN 81MG EC TABLET PO SCH (08:28)
[2019-11-04 11:53] VITALS: BP 139/47
[2019-11-04] MEDS: DEXT 5%/0.45% NACL 1000ML 1,000 ML IV SCH ×2 (12:40→22:07)
[2019-11-04 15:55] VITALS: BP 135/47
[2019-11-04 20:00] VITALS: BP 150/53
[2019-11-04] MEDS: ATORVASTATIN CALCIUM 40MG TABLET PO SCH (22:07)
[2019-11-05] VITALS: BP 138/60
[2019-11-05 04:00] VITALS: BP 135/55
[2019-11-05 08:00] VITALS: BP 174/64
[2019-11-05] MEDS: ASPIRIN 81MG EC TABLET PO SCH (08:38)
[2019-11-05] MEDS: AMLODIPINE 5MG TABLET PO SCH ×2 (08:38→22:20)
[2019-11-05] MEDS: CLOPIDOGREL 75MG TABLET PO SCH (08:38)
[2019-11-05] MEDS: DONEPEZIL HCL 10MG TABLET PO SCH (08:38)
[2019-11-05 12:19] VITALS: BP 152/53
[2019-11-05 16:00] VITALS: BP 130/99
[2019-11-05] MEDS: DEXT 5%/0.45% NACL 1000ML 1,000 ML IV SCH (18:09)
[2019-11-05 20:49] VITALS: BP 134/55
[2019-11-05] MEDS: ATORVASTATIN CALCIUM 40MG TABLET PO SCH (22:20)
[2019-11-06 00:14] VITALS: BP 139/62
[2019-11-06 04:33] VITALS: BP 144/85
[2019-11-06] MEDS: DEXT 5%/0.45% NACL 1000ML 1,000 ML IV SCH ×2 (06:47→20:03)
[2019-11-06 08:00] VITALS: BP 148/51
[2019-11-06] MEDS: ASPIRIN 81MG EC TABLET PO SCH (08:50)
[2019-11-06] MEDS: DONEPEZIL HCL 10MG TABLET PO SCH (08:50)
[2019-11-06] MEDS: CLOPIDOGREL 75MG TABLET PO SCH (08:50)
[2019-11-06] MEDS: AMLODIPINE 5MG TABLET PO SCH ×2 (08:51→20:59)
[2019-11-06 12:00] VITALS: BP 120/45
[2019-11-06 16:00] VITALS: BP 127/53
[2019-11-06 20:45] VITALS: BP 127/48
[2019-11-06] MEDS: ATORVASTATIN CALCIUM 40MG TABLET PO SCH (20:58)
[2019-11-07 00:39] VITALS: BP 96/54
[2019-11-07 04:00] VITALS: BP 144/52
[2019-11-07] MEDS: DEXT 5%/0.45% NACL 1000ML 1,000 ML IV SCH (06:56)
[2019-11-07 08:00] VITALS: BP 148/52
[2019-11-07] MEDS: CLOPIDOGREL 75MG TABLET PO SCH (08:43)
[2019-11-07] MEDS: ASPIRIN 81MG EC TABLET PO SCH (08:43)
[2019-11-07] MEDS: AMLODIPINE 5MG TABLET PO SCH ×2 (08:44→20:58)
[2019-11-07] MEDS: DONEPEZIL HCL 10MG TABLET PO SCH (08:44)
[2019-11-07 12:50] VITALS: BP 138/52
[2019-11-07 16:12] VITALS: BP 130/56
[2019-11-07 20:33] VITALS: BP 125/44
[2019-11-07] MEDS: ATORVASTATIN CALCIUM 40MG TABLET PO SCH (20:58)
[2019-11-08 00:37] VITALS: BP 142/45
[2019-11-08 04:45] VITALS: BP 124/49
[2019-11-08 08:00] VITALS: BP 142/54
[2019-11-08] MEDS: DONEPEZIL HCL 10MG TABLET PO SCH (09:00)
[2019-11-08] MEDS: ASPIRIN 81MG EC TABLET PO SCH (09:00)
[2019-11-08] MEDS: AMLODIPINE 5MG TABLET PO SCH ×2 (09:00→21:22)
[2019-11-08] MEDS: CLOPIDOGREL 75MG TABLET PO SCH (09:00)
[2019-11-08 12:00] VITALS: BP 152/54
[2019-11-08 16:00] VITALS: BP 125/81
[2019-11-08 20:00] VITALS: BP 127/53
[2019-11-08] MEDS: ATORVASTATIN CALCIUM 40MG TABLET PO SCH (21:22)
[2019-11-09] VITALS (8 sets, daily range): BP systolic 122–148; BP diastolic 48–81
[2019-11-09] MEDS: CLOPIDOGREL 75MG TABLET PO SCH (08:52)
[2019-11-09] MEDS: ASPIRIN 81MG EC TABLET PO SCH (08:52)
[2019-11-09] MEDS: AMLODIPINE 5MG TABLET PO SCH ×2 (08:52→20:57)
[2019-11-09] MEDS: DONEPEZIL HCL 10MG TABLET PO SCH (08:52)
[2019-11-09] MEDS: ATORVASTATIN CALCIUM 40MG TABLET PO SCH (20:57)
[2019-11-10] VITALS: BP 148/82
[2019-11-10 04:00] VITALS: BP 133/53
[2019-11-10 08:00] VITALS: BP 128/47
[2019-11-10] MEDS: AMLODIPINE 5MG TABLET PO SCH ×2 (09:11→20:28)
[2019-11-10] MEDS: ASPIRIN 81MG EC TABLET PO SCH (09:11)
[2019-11-10] MEDS: CLOPIDOGREL 75MG TABLET PO SCH (09:11)
[2019-11-10] MEDS: DONEPEZIL HCL 10MG TABLET PO SCH (09:11)
[2019-11-10 12:25] VITALS: BP 118/34
[2019-11-10 16:26] VITALS: BP 131/75
[2019-11-10 20:00] VITALS: BP 137/58
[2019-11-10] MEDS: ATORVASTATIN CALCIUM 40MG TABLET PO SCH (20:28)
[2019-11-11 00:06] VITALS: BP 120/70
[2019-11-11 04:00] VITALS: BP 136/56
[2019-11-11 08:00] VITALS: BP 135/49
[2019-11-11] MEDS: DONEPEZIL HCL 10MG TABLET PO SCH (08:40)
[2019-11-11] MEDS: CLOPIDOGREL 75MG TABLET PO SCH (08:40)
[2019-11-11] MEDS: AMLODIPINE 5MG TABLET PO SCH ×2 (08:40→20:06)
[2019-11-11] MEDS: ASPIRIN 81MG EC TABLET PO SCH (08:40)
[2019-11-11 12:00] VITALS: BP 139/47
[2019-11-11 16:00] VITALS: BP 129/50
[2019-11-11 20:00] VITALS: BP 138/58
[2019-11-11] MEDS: ATORVASTATIN CALCIUM 40MG TABLET PO SCH (20:05)
[2019-11-12] VITALS: BP 120/80
[2019-11-12 04:00] VITALS: BP 130/55
[2019-11-12 08:14] VITALS: BP 154/58
[2019-11-12] MEDS: DONEPEZIL HCL 10MG TABLET PO SCH (09:00)
[2019-11-12] MEDS: ASPIRIN 81MG EC TABLET PO SCH (09:00)
[2019-11-12] MEDS: CLOPIDOGREL 75MG TABLET PO SCH (09:00)
[2019-11-12] MEDS: AMLODIPINE 5MG TABLET PO SCH ×2 (09:01→20:45)
[2019-11-12 12:00] VITALS: BP 137/51
[2019-11-12 16:00] VITALS: BP 139/55
[2019-11-12 20:00] VITALS: BP 149/59
[2019-11-12] MEDS: ATORVASTATIN CALCIUM 40MG TABLET PO SCH (20:45)
[2019-11-13] VITALS: BP 150/53
[2019-11-13 04:00] VITALS: BP 160/58
[2019-11-13 08:00] VITALS: BP 165/62
[2019-11-13] MEDS: AMLODIPINE 5MG TABLET PO SCH ×2 (08:32→20:48)
[2019-11-13] MEDS: CLOPIDOGREL 75MG TABLET PO SCH (08:33)
[2019-11-13] MEDS: DONEPEZIL HCL 10MG TABLET PO SCH (08:33)
[2019-11-13] MEDS: ASPIRIN 81MG EC TABLET PO SCH (08:33)
[2019-11-13 12:00] VITALS: BP 145/48
[2019-11-13 16:00] VITALS: BP 137/50
[2019-11-13 20:00] VITALS: BP 142/61
[2019-11-13] MEDS: ATORVASTATIN CALCIUM 40MG TABLET PO SCH (20:48)
[2019-11-14] VITALS: BP 148/50
[2019-11-14 04:00] VITALS: BP 144/52
[2019-11-14 08:00] VITALS: BP 101/50
[2019-11-14] MEDS: AMLODIPINE 5MG TABLET PO SCH ×2 (09:00→21:42)
[2019-11-14] MEDS: CLOPIDOGREL 75MG TABLET PO SCH (09:13)
[2019-11-14] MEDS: DONEPEZIL HCL 10MG TABLET PO SCH (09:13)
[2019-11-14] MEDS: ASPIRIN 81MG EC TABLET PO SCH (09:13)
[2019-11-14 12:00] VITALS: BP 101/53
[2019-11-14 16:00] VITALS: BP 102/62
[2019-11-14 20:00] VITALS: BP 137/52
[2019-11-14] MEDS: ATORVASTATIN CALCIUM 40MG TABLET PO SCH (21:42)
[2019-11-15] VITALS: BP 135/60
[2019-11-15 04:00] VITALS: BP 157/52
[2019-11-15 08:00] VITALS: BP 149/53
[2019-11-15] MEDS: CLOPIDOGREL 75MG TABLET PO SCH (08:37)
[2019-11-15] MEDS: ASPIRIN 81MG EC TABLET PO SCH (08:37)
[2019-11-15] MEDS: DONEPEZIL HCL 10MG TABLET PO SCH (08:38)
[2019-11-15] MEDS: AMLODIPINE 5MG TABLET PO SCH ×2 (08:38→20:25)
[2019-11-15 12:00] VITALS: BP 149/59
[2019-11-15 16:00] VITALS: BP 144/63
[2019-11-15 20:00] VITALS: BP 146/49
[2019-11-15] MEDS: ATORVASTATIN CALCIUM 40MG TABLET PO SCH (20:21)
[2019-11-16] VITALS: BP 142/44
[2019-11-16 04:00] VITALS: BP 129/51
[2019-11-16 08:00] VITALS: BP 138/63
[2019-11-16] MEDS: CLOPIDOGREL 75MG TABLET PO SCH (09:51)
[2019-11-16] MEDS: DONEPEZIL HCL 10MG TABLET PO SCH (09:51)
[2019-11-16] MEDS: AMLODIPINE 5MG TABLET PO SCH ×2 (09:51→21:22)
[2019-11-16] MEDS: ASPIRIN 81MG EC TABLET PO SCH (09:56)
[2019-11-16 12:00] VITALS: BP 145/62
[2019-11-16 16:00] VITALS: BP 143/63
[2019-11-16 20:00] VITALS: BP 137/48
[2019-11-16] MEDS: ATORVASTATIN CALCIUM 40MG TABLET PO SCH (21:24)
[2019-11-17] VITALS: BP 144/65
[2019-11-17 08:00] VITALS: BP 140/55
[2019-11-17] MEDS: AMLODIPINE 5MG TABLET PO SCH ×2 (08:24→20:49)
[2019-11-17] MEDS: CLOPIDOGREL 75MG TABLET PO SCH (08:24)
[2019-11-17] MEDS: ASPIRIN 81MG EC TABLET PO SCH (08:24)
[2019-11-17] MEDS: DONEPEZIL HCL 10MG TABLET PO SCH (08:24)
[2019-11-17 12:00] VITALS: BP 139/88
[2019-11-17 16:00] VITALS: BP 124/50
[2019-11-17 20:00] VITALS: BP 154/60
[2019-11-17] MEDS: ATORVASTATIN CALCIUM 40MG TABLET PO SCH (20:49)
[2019-11-18] VITALS: BP 99/52
[2019-11-18 04:00] VITALS: BP 158/59
[2019-11-18 08:00] VITALS: BP 187/64
[2019-11-18] MEDS: DONEPEZIL HCL 10MG TABLET PO SCH (08:46)
[2019-11-18] MEDS: ASPIRIN 81MG EC TABLET PO SCH (08:46)
[2019-11-18] MEDS: AMLODIPINE 5MG TABLET PO SCH ×2 (08:46→20:24)
[2019-11-18] MEDS: CLOPIDOGREL 75MG TABLET PO SCH (08:46)
[2019-11-18 12:00] VITALS: BP 150/56
[2019-11-18 16:00] VITALS: BP 144/54
[2019-11-18 20:00] VITALS: BP 138/51
[2019-11-18] MEDS: ATORVASTATIN CALCIUM 40MG TABLET PO SCH (20:24)
[2019-11-19] VITALS: BP 150/54
[2019-11-19 04:00] VITALS: BP_SYST 143; BP_SYST 146; BP_DIAS 62; BP_DIAS 90
[2019-11-19 08:00] VITALS: BP 141/59
[2019-11-19] MEDS: CLOPIDOGREL 75MG TABLET PO SCH (08:45)
[2019-11-19] MEDS: ASPIRIN 81MG EC TABLET PO SCH (08:45)
[2019-11-19] MEDS: AMLODIPINE 5MG TABLET PO SCH ×2 (08:45→20:25)
[2019-11-19] MEDS: DONEPEZIL HCL 10MG TABLET PO SCH (08:45)
[2019-11-19 12:00] VITALS: BP 131/53
[2019-11-19 16:00] VITALS: BP 147/60
[2019-11-19 20:00] VITALS: BP 145/61
[2019-11-19] MEDS: ATORVASTATIN CALCIUM 40MG TABLET PO SCH (20:26)
== END 2019-11-19 21:57 | disposition home or self-care (01) | DRG 74 ==
LOC: ER 12:54 → 6WST 16:49 → EDBEDREQTM 16:51 → EDBEDREQ 16:51 → ENRESERV 20:15 → 6WST 10-29 14:48 → 6EST 11-12 10:33
PROVIDERS: ADMIT Internal Medicine; ATTEND Internal Medicine
PROC: 30233N1 Transfusion of Nonautologous Red Blood Cells into Peripheral Vein, Percutaneous Approach (ICD-10-PCS; principal; 2019-10-31)
DX: G90.8 Other disorders of autonomic nervous system (principal); E44.1 Mild protein-calorie malnutrition; I73.9 Peripheral vascular disease, unspecified; I27.20 Pulmonary hypertension, unspecified; I25.10 Atherosclerotic heart disease of native coronary artery without angina pectoris; F03.90 Unspecified dementia, unspecified severity, without behavioral disturbance, psychotic disturbance, mood disturbance, and anxiety; D64.9 Anemia, unspecified; E78.5 Hyperlipidemia, unspecified; I50.9 Heart failure, unspecified; I11.0 Hypertensive heart disease with heart failure; E86.0 Dehydration; I49.5 Sick sinus syndrome; Z79.02 Long term (current) use of antithrombotics/antiplatelets; Z85.038 Personal history of other malignant neoplasm of large intestine; Z86.73 Personal history of transient ischemic attack (TIA), and cerebral infarction without residual deficits; I25.2 Old myocardial infarction; Z87.891 Personal history of nicotine dependence; Z95.0 Presence of cardiac pacemaker; Z93.3 Colostomy status; Z87.442 Personal history of urinary calculi; Z88.0 Allergy status to penicillin; Z88.1 Allergy status to other antibiotic agents
CPT/HCPCS: 36415; 71045; 80048; 80053; 80162; 81003; 82270; 82550; 82553; 83540; 83550; 83735; 83880; 84484; 85014; 85018; 85025; 85027; 85049; 85384; 86850; 86900; 86920; 93005; 93970; 97162; 97530; 99285; C1893; J7040; P9016